=== PATIENT | female | born 1950 | race Caucasian/White ===

== ENCOUNTER → 2019-03-08 | Outpatient (CLI) | payer OTHER ==
[~2019-03-08] VITALS: Ht 170.2 cm; Wt 104.3 kg
[~2019-03-08] MED LIST: ALLEGRA ALLERG180 MG PO; CICLOPIROX30 GM TP; CYMBALTA60 MG PO; ENSTILAR 0.005%60 GM TOP; FLONASE 0.05%50 MCG NASAL; FOSAMAX 70 MG T70 MG PO; IBUPROFEN 200200 M1 PO; INVOKANA100 MG PO; JARDIANCE25 MG PO; LANTUS100 UNIT/M SUBQ; LEVOTHYROXIN0.175 MG PO; LIPITOR40 MG PO; MICARDIS40 MG PO; MOBIC15 MG PO; NEURONTIN 300M300 M2 PO; NEXIUM40 MG PO; NOVOLOG FL100 UNIT/M SUBQ; SINEMET 25-1001 EAC1 PO; TRAZODONE HCL100 MG PO; TYLENOL325 MG PO; UNICOMPLEX M TA1 TA1 PO; VITAMIN C500 MG PO; VITAMIN D2000 UNIT PO; VITAMIN E1000 UNI2 PO
[2019-03-08 11:03] VITALS: BP 135/97
--- NOTE | 2019-03-08 11:56 | NUR ---
Pain Clinic Assessment: 1. History of Osteoarthritis: Left Lower Extremity Left Upper Extremity Right Lower Extremity Right Upper Extremity History of Rheumatoid Arthritis: Not Applicable 2. Height: 5 ft. 7 in. 170.2 cm. Weight: 230.0 lb. oz. 104.328 kg. Patient's BMI: 36.0 3. Vital Signs: BP: 135/97 Pulse: 77 Resp: 14 Temp: 02 Sat: 95 ECG Mon: 4. Pain Intensity: 10 5. Fall Risk: Dizziness: Y Needs help standing or walking: N Fallen in the last 3 months: N Fall risk comments: 6. Patient on Blood Thinner: None 7. History of Hypertension: Y 8. Opioid Therapy greater than 6 weeks: N Opiate Contract Signed: 9. Risk Assessment Tool Provided: 0-LOW RISK 10. Functional Assessment Tool: 11. Recreational Drug Use: Never Drug Type: Tobacco Use: Never Smoker Tobacco Type: Amount or Packs/day: How Many Years: Alcohol Use: No Frequency: Quant:
--- NOTE | 2019-03-15 12:21 | HPC ---
[facility] [address] [place] [address] PAIN MANAGEMENT CONSULTATION Name: FILIPE OWEN Room #: [facility].#: [id number] Admission: 03/08/19 Attend Phys: Armond Nam MD Discharge: Date of : 50 Report #: [id number] THIS REPORT FOR: //name// CC: RUMA BAKER MD Physician staff FLORA Nam DATE OF SERVICE: 03/08/2019 CHIEF COMPLAINT: Back pain without radiation. The patient is a pleasant 69-year-old here today for back pain. She has had it for a number of years, but it became much more prominent and severe in 2017. It is across her back in a broad distribution in the lumbosacral region. She describes it as sharp, at times rhythmic and intermittent. 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 This has made her very inactive and she is quite sedentary other than her yoga. She denies exercise physical therapy or other treatments. She has not seen a chiropractor nor she had alternative treatments. Her underwent back surgery and is improved and she has some thought that she might respond to surgery. She went to see Dr. Baker, who performed her 's surgery and the advanced nurse practitioners. They referred her to us for consideration of facet arthropathy and injections, diagnostic and therapeutic. She did suffer a compression fracture and underwent a kyphoplasty at L4. MEDICATIONS: Alendronate Sodium, vitamin D3, Tylenol, Nhung, trazodone, levothyroxine, atorvastatin, Jardiance, fluticasone, vitamins, Enstilar, Cymbalta 60 mg daily, Micardis, gabapentin. ALLERGIES: None. PAST MEDICAL HISTORY: She has type 2 diabetes and asthma, history of hypertension. She denies cardiac issues. She has had a prior cholecystectomy and is treated for hypothyroidism. She identifies colon problems, although no specific diagnosis accompanies her chronic diarrhea. She has been treated in the past for stomach ulcer. She suffers from chronic depression, which is lifetime and situational. She has had two sons committed suicide. The first 10 years ago, the second 6 years ago. She has another living son in the [facility]. She mournfully states you never get over such things. She has a history of a cervical cancer, which was treated and cured in 1974. 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 [place] [address] PAIN MANAGEMENT CONSULTATION Name: FILIPE OWEN Room #: [facility]#: [id number] Admission: 03/08/19 Attend Phys: Armond Nam MD Discharge: Date of : 50 Report #: [id number] REVIEW OF SYSTEMS: Positive for fatigue, weakness, night sweats and headaches, blurred vision on occasion, sinusitis, frequent coughs, asthma, wheezing, nausea, vomiting. She had convulsions as a baby, but they were likely febrile seizures, she describes memory loss at times and confusion and chronic depression described above situational. PHYSICAL EXAMINATION: GENERAL: She is a pleasant female, alert and oriented. Her affect is quiet. She is 5 feet 7 inches, 230 pounds, BMI of 36.0. VITAL SIGNS: Blood pressure is 135/97, heart rate 77, respirations 14, O2 sat 95. Pain intensity is at 10/10. She complains of dizziness, but has not fallen. HEENT: Pupils are equal, round, react to light. EOMs are intact. Mucous membranes are moist. NECK: Supple. CHEST: Reveals normal breath sounds. CARDIAC: There is a 2-3/6 systolic murmur best heard at the right sternal border second intercostal space. Rhythm is normal. ABDOMEN: Soft. She is obese. MUSCULOSKELETAL: Examination of the spine reveals pain, but limited pain with flexion, which is excellent. No pain with back extension, but she does have pain with lateral tilt right and left. Straight leg raising is mildly positive, reproducing pain; however, in the back and not in the legs. Sensation and strength are normal in lower extremities. SKIN: The skin is examined and she has diffuse plaquing throughout the torso and extremities due to psoriasis. IMPRESSION: Low back pain with scoliosis and history of osteoporosis with compression fracture. PROCEDURE: Bilateral facet injections, L5-S1, L4-L5, L3-L4. After informed consent, she was taken to fluoroscopic suite where she was placed prone. Skin was prepped with ChloraPrep and anesthetized first on the left. A 25-gauge needles were gently advanced into position at the inferior recess of the L3-L4, L4-L5 and L5-S1 facet joints. Anatomy was challenging, especially with the kyphoplasty obscuring some of the landmarks for the L5-S1 facet. After negative aspiration at each location, I injected 2 mL of solution 0.5% bupivacaine and 10 mg of triamcinolone. Needle was removed and the procedure was repeated on the right. She tolerated the procedures well. In the recovery room, her pain score was 0! She had significant reductions in pain across her low back with the injections. She may be a candidate for radiofrequency ablation if we can identify target nerves. [address] [address] PAIN MANAGEMENT CONSULTATION Name: FILIPE OWEN Room #: [facility] EDNA Ruiz#: [id number] Admission: 03/08/19 Attend Phys: Armond Nam MD Discharge: Date of : 50 Report #: [id number] Followup visit is planned in 1 month for possible repeat injections. <ELECTRONICALLY SIGNED> By: Armond Nam MD 03/15/19 1221 [id number] Armond Nam MD /nt
== END | disposition home or self-care (01) ==
LOC: PAIN 06:51
DX: M54.5 Low back pain (principal); M47.816 Spondylosis without myelopathy or radiculopathy, lumbar region; M41.86 Other forms of scoliosis, lumbar region; G89.29 Other chronic pain; I10 Essential (primary) hypertension; E11.9 Type 2 diabetes mellitus without complications; J45.909 Unspecified asthma, uncomplicated; M19.90 Unspecified osteoarthritis, unspecified site; E03.9 Hypothyroidism, unspecified; F32.89 Other specified depressive episodes; Z98.890 Other specified postprocedural states; Z79.899 Other long term (current) drug therapy; Z90.49 Acquired absence of other specified parts of digestive tract; Z87.19 Personal history of other diseases of the digestive system; Z87.310 Personal history of (healed) osteoporosis fracture; Z79.4 Long term (current) use of insulin